=== PATIENT | male | born 1950 | race Hispanic/Latino ===

== ENCOUNTER 2019-05-07 07:06 | Day surgery (SDC) | payer OTHER, MEDICARE ==
[2019-05-06 11:52] VITALS: BMI 28.3
[2019-05-07] MEDS ORDERED: EPINEPHrine 0.3 MG in Ophthalmic Irrigation Solution 500 ML IRR SCH (07:15)
[2019-05-07] MEDS ORDERED: PROPOFOL 20 ML ONE (07:18)
[2019-05-07] MEDS ORDERED: Fentanyl 100 MCG/2 ML VIAL ONE (07:18)
[2019-05-07] MEDS ORDERED: Midazolam HCl 2 mg/2 ml Vial ONE (07:18)
[2019-05-07] MEDS ORDERED: Phenylephrine 2.5% Ophth Soln 5 ML BOT ONE (07:21)
[2019-05-07] MEDS ORDERED: Cyclopentolate 1% Opth Drop 2 ML BOT ONE (07:21)
[2019-05-07] MEDS ORDERED: Bupivacaine PF 0.75% SDV 10 ML ONE (13:45)
[2019-05-07] MEDS ORDERED: Maxitrol 0.1% Opth Oint 3.5 GM TUBE ONE (13:45)
[2019-05-07] MEDS ORDERED: Lidocaine 1% PF 5 ML VIAL ONE (13:45)
[2019-05-07] MEDS ORDERED: CEFAZOLIN 1 GM VIAL ONE (13:45)
[2019-05-07] MEDS ORDERED: Lidocaine 4% PF 5 ML AMP ONE (13:45)
[2019-05-07] MEDS ORDERED: Triamcinolone 40 MG/ML VIAL ONE (13:45)
--- NOTE | 2019-05-07 14:45 | OP ---
DATE OF PROCEDURE: 05/07/2019 PREOPERATIVE DIAGNOSES: 1. Vitreous hemorrhage, left eye. 2. Tractional retinal detachment, left eye. 3. Proliferative diabetic retinopathy, left eye. POSTOPERATIVE DIAGNOSES: 1. Vitreous hemorrhage, left eye. 2. Tractional retinal detachment, left eye. 3. Proliferative diabetic retinopathy, left eye. PROCEDURE PERFORMED: 1. 25-gauge pars plana vitrectomy, left eye. 2. Tractional retinal detachment repair, left eye. 3. Endolaser panretinal photocoagulation, left eye. ESTIMATED BLOOD LOSS: None. SPECIMENS REMOVED: None. COMPLICATIONS: None. ANESTHESIA: MAC with retrobulbar block. DESCRIPTION OF PROCEDURE: The patient was identified in the preoperative holding area, where the correct eye being the left eye was marked for surgery. The patient was taken to the operating room, where MAC anesthesia was induced. A retrobulbar block was administered to the left eye. The block consisted of 1:1 ratio of 4% lidocaine and 0.75% Marcaine. A total of 5 mL was administered. The left eye was then prepped and draped in the usual sterile fashion for surgery. A wire lid speculum was placed. A standard 25-gauge pars plana vitrectomy platform was fashioned with trocars placed approximately 3.5 mm from the limbus. The infusion was noted to be within the vitreous cavity prior to being turned on to an infusion pressure of 30 mmHg. The light pipe micro vitrector introduced in the eye under visualization with the BIOM viewing system. A dense vitreous hemorrhage was noted obscuring view of the fundus. A careful core vitrectomy was performed followed by progressive clearance of the vitreous hemorrhage and subsequent peripheral shave vitrectomy. Upon clearance of the vitreous hemorrhage, a nasal tractional retinal detachment was noted with neovascular fronds within. Great care was taken to relieve all traction from these fibrotic bands with use of the micro vitrector. The retinal detachment was delaminated and segmented to relieve the traction. Endo cautery was used to provide hemostasis as needed. Following retinal detachment repair, the endolaser was used to provide panretinal photocoagulation in the typical fashion with sparing of the 3 and 9 o'clock meridians. Following Endolaser, the cannulas were sequentially removed and all sclerotomies were noted to be watertight. Subconjunctival Ancef and Kenalog were injected. The wire lid speculum was removed followed by application of TobraDex ophthalmic ointment and a light patch and shield. The patient tolerated the procedure well and was taken to outpatient recovery in good condition. Job ID: [id number]
== END 2019-05-07 09:52 | disposition home or self-care (01) ==
LOC: SDC 07:06
PROVIDERS: ATTEND Ophthalmology Retina Specialist
PROC: 08B53ZZ Excision of Left Vitreous, Percutaneous Approach (ICD-10-PCS; principal; 2019-05-07)
PROC: 08QF3ZZ Repair Left Retina, Percutaneous Approach (ICD-10-PCS; principal; 2019-05-07)
DX: E11.3532 Type 2 diabetes mellitus with proliferative diabetic retinopathy with traction retinal detachment not involving the macula, left eye (principal); H43.12 Vitreous hemorrhage, left eye
CPT/HCPCS: J0171; J0690; J2001; J2250; J2704; J3010; J3301; J3490

== ENCOUNTER 2020-04-28 05:56 | Day surgery (SDC) | payer OTHER, MEDICARE ==
[2020-04-27 10:04] VITALS: BMI 26.5
[2020-04-28] MEDS ORDERED: EPINEPHrine 0.3 MG in Ophthalmic Irrigation Solution 500 ML IRR SCH (06:00)
[2020-04-28] MEDS ORDERED: Phenylephrine 2.5% Ophth Soln 5 ML BOT ONE (06:15)
[2020-04-28] MEDS ORDERED: Cyclopentolate 1% Ophth Drops 15 ML BOT ONE (06:15)
[2020-04-28] MEDS ORDERED: Midazolam HCl 2 mg/2 ml Vial ONE (06:38)
[2020-04-28] MEDS ORDERED: PROPOFOL 20 ML ONE (06:38)
[2020-04-28] MEDS ORDERED: Fentanyl 100 MCG/2 ML VIAL ONE (06:38)
--- NOTE | 2020-04-28 09:21 | OP ---
DATE OF PROCEDURE: 04/28/2020 PRINCIPAL PREOPERATIVE DIAGNOSES: 1. Vitreous hemorrhage, right eye. 2. Proliferative diabetic retinopathy, right eye. 3. Epiretinal membrane, right eye. POSTOPERATIVE DIAGNOSES: 1. Vitreous hemorrhage, right eye. 2. Proliferative diabetic retinopathy, right eye. 3. Epiretinal membrane, right eye. PROCEDURES PERFORMED: 1. 25-gauge pars plana vitrectomy, right eye. 2. Panretinal photocoagulation, right eye. 3. Epiretinal membrane peel, right eye. ESTIMATED BLOOD LOSS: None. SPECIMENS REMOVED: None. COMPLICATIONS: None. ANESTHESIA: MAC with sub-Tenon's block. DESCRIPTION OF PROCEDURE: The patient was identified in the preoperative holding area, where the correct eye being the right eye was marked for surgery. The patient was taken to the operating room, where MAC anesthesia was induced. The right eye was prepped and draped in usual sterile ophthalmic fashion for surgery. A wire-clip lid speculum was placed. A standard right inferonasal conjunctival peritomy was fashioned with Jarvis scissors for administration of sub-Tenon's block. The block consisted of 1:1 ratio of 4% lidocaine and 0.75% Marcaine. Total of 5 mL was administered. A standard 25-gauge pars plana vitrectomy platform was fashioned with trocars placed approximately 3.5 mm from the limbus. The infusion was noted to be within the vitreous cavity prior to being turned on to infusion pressure of 30 mmHg. The light pipe and microvitrector were introduced in the eye under visualization of the BIOM viewing system. A significant preretinal hemorrhage was noted. A careful core vitrectomy was performed followed by injection of Kenalog. A gentle posterior vitreous detachment was created followed by completion of peripheral shave vitrectomy. The creation of posterior vitreous detachment allowed for resolution of the preretinal hemorrhage. Following vitrectomy, the endolaser was used to provide a fill-in panretinal photocoagulation posterior to the preexisting laser. Following endolaser, the ICG dye was used to stain the internal limiting membrane. A small epiretinal membrane was noted superior to the fovea and was removed with the use of the ILM forceps. This was done in a circumferential fashion about the fovea. The peel extended approximately 2 disk diameters in radius circumferentially. Following peeling, the microvitrector was reintroduced in the eye to remove the residual vitreous debris. The cannulas were sequentially removed and all sclerotomies were noted to be watertight. Subconjunctival Ancef and Kenalog were injected. The wire-clip lid speculum was removed followed by application of TobraDex ophthalmic ointment and a light patch and shield. The patient tolerated the procedure well and was taken to outpatient recovery area in good condition. Job ID: [id number]
[2020-04-28] MEDS ORDERED: Bupivacaine PF 0.75% SDV 10 ML ONE (09:52)
[2020-04-28] MEDS ORDERED: Indocyanine Green 25 MG/10 ML VIAL ONE (09:52)
[2020-04-28] MEDS ORDERED: Triamcinolone 40 MG/ML VIAL ONE (09:52)
[2020-04-28] MEDS ORDERED: Lidocaine 1% PF 5 ML VIAL ONE (09:52)
[2020-04-28] MEDS ORDERED: Lidocaine 4% PF 5 ML AMP ONE (09:52)
[2020-04-28] MEDS ORDERED: Maxitrol 0.1% Opth Oint 3.5 GM TUBE ONE (09:52)
[2020-04-28] MEDS ORDERED: CEFAZOLIN 1 GM VIAL ONE (09:52)
== END 2020-04-28 09:45 | disposition home or self-care (01) ==
LOC: SDC 05:56
PROVIDERS: ATTEND Ophthalmology Retina Specialist
PROC: 08NE3ZZ Release Right Retina, Percutaneous Approach (ICD-10-PCS; principal; 2020-04-28)
PROC: 085E3ZZ Destruction of Right Retina, Percutaneous Approach (ICD-10-PCS; principal; 2020-04-28)
PROC: 08T43ZZ Resection of Right Vitreous, Percutaneous Approach (ICD-10-PCS; principal; 2020-04-28)
DX: H43.11 Vitreous hemorrhage, right eye (principal); E11.3591 Type 2 diabetes mellitus with proliferative diabetic retinopathy without macular edema, right eye; H35.379 Puckering of macula, unspecified eye; Z79.82 Long term (current) use of aspirin; Z79.84 Long term (current) use of oral hypoglycemic drugs; Z79.899 Other long term (current) drug therapy
CPT/HCPCS: J0171; J0690; J2250; J2704; J3010; J3301; J3490